=== PATIENT | female | born 1980 | race Caucasian/White ===

== ENCOUNTER → 2021-02-17 14:17 | Outpatient (BNVA) | payer OTHER, SELFPAY | PROVIDERS: PCP Internal Medicine Hematology & Oncology; Visit Provider Nurse Practitioner Family ==

== ENCOUNTER 2021-05-17 16:32 | Outpatient (REF) | payer OTHER, SELFPAY ==
--- NOTE | ~2021-05-17 | MR_ITS ---
EXAMINATION: MR BRAIN WITHOUT AND WITH CONTRAST CLINICAL INFORMATION: Papilledema. COMPARISON: There are no prior studies available for comparison. TECHNIQUE: Multiplanar, multisequence MRI of the brain was obtained before and after the intravenous administration of 9 mL Gadavist. FINDINGS: No diffusion abnormalities are identified to suggest an acute or subacute infarct. No mass effect or midline shift is seen. The ventricles and sulci are normal in size. Brain parenchymal signal is unremarkable. No extra-axial fluid collections are seen. The brainstem appears normal. On postcontrast imaging, there is no abnormal parenchymal or leptomeningeal enhancement. There is susceptibility artifact in the scalp in the anterior right frontal region which is nonspecific. There is minimal prominence of the left optic nerve head, and there is flattening of the posterior sclerae bilaterally. The visualized optic nerves appear normal. The cerebellar tonsils have normal contour and position, and the craniocervical junction appears normal. There is asymmetry of the anterior lobe of the pituitary gland, more prominent on the right. There is mild rightward deviation of the infundibulum. Signal from the pituitary gland appears uniform on this study. Marrow signal is normal. There are sequelae of an ACDF in the cervical spine, with the most superior hardware at the level of C4. There is a posterior disc protrusion at C3-C4. The major intracranial flow-voids at the level of the [place] are preserved. The dural venous sinus flow-voids are maintained. The mastoid air cells and paranasal sinuses are well-aerated. MR/MR head/brain wo/w con IMPRESSION: 1. There is minimal prominence of the left optic nerve head, and there is flattening of the posterior sclerae bilaterally. These findings are consistent with intracranial hypertension in the correct clinical setting. 2. There is slight asymmetry of the anterior lobe of the pituitary gland, larger on the right. Correlate with pituitary function testing. 3. There are no acute bleeds or infarcts. There are no masses or areas of abnormal enhancement. 4. There are sequelae of ACDF in the cervical spine. There is a disc protrusion posteriorly at the level of C3-C4. 5. There is susceptibility artifact in the scalp in the right frontal region with nonspecific. Correlate clinically.
== END 2021-05-17 16:33 | disposition home or self-care (01) ==
LOC: HO.MRI 16:32
PROVIDERS: PCP Internal Medicine; Visit Provider Psychiatry & Neurology Neurology
DX: H47.10 Unspecified papilledema (principal)
CPT/HCPCS: 70553; A9585

== ENCOUNTER 2021-08-22 09:15 | Outpatient (REF) | payer OTHER, SELFPAY ==
--- NOTE | ~2021-08-22 | XR_ITS ---
EXAMINATION: XR ELBOW, RIGHT CLINICAL INFORMATION: Pain COMPARISON: None TECHNIQUE: AP, lateral, and oblique views of the right elbow. FINDINGS: The bones and soft tissues are normal. No fracture or joint effusion. Alignment is anatomic. Joint spaces are maintained. XR/XR elbow RT min 3V IMPRESSION: Unremarkable right elbow.
== END 2021-08-22 09:16 | disposition home or self-care (01) ==
LOC: HO.XRAY 09:15
PROVIDERS: PCP Internal Medicine; Visit Provider Nurse Practitioner Family
DX: M25.521 Pain in right elbow (principal)
CPT/HCPCS: 73080